=== PATIENT | female | born 1975 | race Caucasian/White ===

== ENCOUNTER 2016-09-26 16:41 | Emergency (ER) | payer MEDICAID ==
[~2016-09-26] VITALS: Ht 162.6 cm; Wt 104.3 kg
[~2016-09-26 16:41] MED LIST: CYMBALTA60 MG PO; EMBEDA ER 30-11 EACH PO; LYRICA 100 MG100 MG PO; PERCOCET 10 MG1 EACH PO
[2016-09-26] MEDS ORDERED: AMOXICILLIN875 MG PO (17:17)
--- NOTE | 2016-09-26 17:18 | [facility]gent Treatment Center Report ---
History of Present Issue Date/Time Seen by Provider 09/26/16 5821 Visit Reason Pt arrived:Walked Presenting Problem:PT STATES SHE HAD BEEN SWIMMING AND HER LEFT EAR STARTED HURTING 1 DAY AGO PT SAYS SHE FEELS LIKE SHE HAS A SINUS INFECTION, WITH SINUS PRESSURE AND DRAINAGE. Location if Accident: Onset of symptoms date/time:/ or onset unknown for:MEDICAL HX UNKNOWN Have you (or family members/close friends) recently traveled outside the [place]? N If Yes, where/when: Have you had exposure to infectious disease within the past month? TB? Other? Specify: c/o left ear pain starting last night. Accompanied w/ sinus pressure and headache, also on left side. Hasn't taken or tried anything for ear pain. "I am immune to tylenol and ibuprofen because of all the problems with my back". Denies changes in hearing. No ear drainage, dizziness. mild intermittent nonproductive cough. No known sick contacts. Has been swimming lately and wonders if that hasn't contributed. Denies antibiotic use in the last several months. Source patient Exam Limitations no limitations ALLERGIES Coded Allergies: No Known Drug Allergies (01/30/16) venom-honey bee (BEE VENOM (HONEY BEE)) (01/03/16) Home Medications Reported Medications No Known Home Medications History Medical History General CAD? No Angina: No ME: No Hypertension? No Hyperlipidemia? No CHF? No DVT? No PE? No COPD? No Asthma? No Anemia? No GERD? No Gastric ulcers? Yes GI Bleed? No Hernia? No Thyroid Problems? No Hypothyroidism? No CVA? No Seizures? No Diabetes? No Renal Insuffiency? No UTI? Yes Stones? No BPH? No GB Disease: No Nephritic Syndrome? No Asplenia? No Hepatitis? No Sickle Cell Disease? No Arthritis? Yes Migraines? No Cataracts? No Glaucoma? No MRSA? No HIV? No TB? No Anxiety? Yes Depression? Yes Cancer? No More? No Immunization HX DT/Tetanus 5-10 Years Ago Surgical Hx Previous Surgery?Y CARPEL TUNNEL SHOULDER SURGERY LEFT KNEE SURGERY CYST ON COCCYX WISDOM TEETH Social History Smoking Hx Smoker: Current Every Day Smoker Tobacco: Yes Type Cigarettes Packs/day 1 1/2 - 2 Packs Alcohol Alcohol: No Review of Systems All Other Systems Reviewed and Negative Constitutional see HPI, denies chills, denies fever, denies malaise Eyes denies drainage ENT see HPI. denies: nose discharge, nose congestion, throat pain. Respiratory see HPI, denies shortness of breath, denies wheezing Gastrointestinal denies nausea, denies vomiting Skin denies rash Psychiatric/Neurological see HPI Physical Exam Vital Signs Vital Signs Date Time Temp Pulse Resp B/P Pulse O2 O2 Flow FiO2 Ox Delivery Rate 09/26 1651 98.0 120 20 154/91 99 General Appearance no apparent distress, obese Eye Exam - bilateral eye normal exam Ear, Nose, Throat normal ENT inspection (x/ left TM bright red, bulging) Neck non-tender, supple Respiratory Status No: respiratory distress, productive cough, non productive cough. Lung Sounds anterior: lungs clear. posterior: lungs clear. bilateral: lungs clear. Cardiovascular regular rate/rhythm, no peripheral edema, no murmur Neurologic alert Mental status normal mood/affect Skin normal color, warm/dry Lymphatic no adenopathy Medical Decision Making LABS/Meds/Orders Pt receiving controlled substance in ED? No Departure Departure Time of Disposition 1714 Disposition DC Home or Self Care(routine) Clinical Impression Primary Impression: Left otitis media Qualifiers: Otitis media type: unspecified Chronicity: unspecified Qualified Code: H66.92 - Otitis media, unspecified, left ear Condition STABLE Referrals Manjit CARDENAS,A.C. (Family) * Immediately for new or worsening symptoms, no noticeable improvement in 48-72 hours AND in 10-14 days to ensure ears are back to baseline. Patient Instructions DI for Otitis Media (Middle Ear Infection)-Child Additional Instructions * Start antibiotic JHOANA and be sure to take as ordered for the FULL length of time although you should start to feel better in 24-48 hours. * Monitor Temp. Tylenol every 4 hours as needed and/or ibuprofen every 6 hours as needed (as long as your primary care doctor has told you that it is ok to take both) for fever/aches/pain. ER if fever no less than 101 despite tylenol and ibuprofen * Encourage fluids, water, gatorade, powerade, pedialyte if /toddler/child * warm compress often helps when placed over ear * sleep elevated * Immediately for new or worsening symptoms, no noticeable improvement in 48-72 hours AND in 10-14 days to ensure ears are back to baseline. Discharge Counseling Counseled pt/family regarding diagnosis, medications/RX, home care, follow up needs Prescriptions Current Visit Scripts AMOXICILLIN (Amoxicillin 875MG Tab) 875 MG PO BID #20 TAB at 1720
[2016-09-26 17:24] VITALS: BP 154/91
[2016-10-06] MEDS ORDERED: CIPRODEX 0.3%-7.5 ML OT (15:25)
== END 2016-09-26 17:25 | disposition home or self-care (01) ==
LOC: UTC 16:41
DX: H66.92 Otitis media, unspecified, left ear (principal); Z72.0 Tobacco use